=== PATIENT | female | born 1965 | race Caucasian/White ===

== ENCOUNTER → 2017-03-03 | Outpatient (CLI) | payer BC ==
[~2017-03-03] MED LIST: ACET-1311 PO; PRLSR20 PO
--- NOTE | 2017-03-03 12:09 | DIAGNOSTIC IMAGING REPORT ---
CHEST 2 VIEWS ROUTINE CLINICAL HISTORY: COUGH, LUNG DISEASE, LUNG NODULE, SINOBRONCHITIS COMPARISON STUDY: Chest radiograph September 09, [address] September 27, 2015. FINDINGS: Lung volumes are normal. No pneumothorax or pleural effusion is present. There is no consolidation to suggest pneumonia. Cardiomediastinal silhouette is normal. Pulmonary vascularity is normal. IMPRESSION: No acute cardiopulmonary findings. Electronically signed by: Stanley Dillon M.D. 03/03/2017 12:08 PM Dictated Date/Time: 03/03/2017 12:07 PM
== END | disposition home or self-care (01) ==
LOC: C.RAD1850 11:52
PROVIDERS: ATTEND Physician Assistant
DX: J32.9 Chronic sinusitis, unspecified (principal); J84.9 Interstitial pulmonary disease, unspecified; R05 Cough; R91.1 Solitary pulmonary nodule

== ENCOUNTER → 2017-03-25 | Outpatient (CLI) | payer BC ==
--- NOTE | 2017-03-25 11:30 | DIAGNOSTIC IMAGING REPORT ---
CHEST 2 VIEWS ROUTINE CLINICAL HISTORY: R05 [id number] COMPARISON STUDY: 03/03/2017 FINDINGS: The cardiac and mediastinal contours are normal. There is no evidence of focal pulmonary consolidation. There is no evidence of failure. No pleural effusions are visualized.[ A retrocardiac opacity likely represents a hiatal hernia. IMPRESSION: No active disease in the chest. Electronically signed by: Mark Sanchez M.D. 03/25/2017 11:28 AM Dictated Date/Time: 03/25/2017 11:27 AM
[2017-03-25 14:53] LABS: INFLUENZA A PCR Neg for Influ A (NEG); INFLUENZA B PCR Neg for Influ B (NEG)
== END | disposition home or self-care (01) ==
LOC: C.RAD1850 11:12
PROVIDERS: ATTEND Physician Assistant
DX: R05 Cough (principal)

== ENCOUNTER → 2018-02-10 | Outpatient (CLI) | payer BC ==
--- NOTE | 2018-02-10 11:35 | DIAGNOSTIC IMAGING REPORT ---
CHEST 2 VIEWS ROUTINE HISTORY: R05 [id number] Chest [id number] COMPARISON: Chest 03/25/2017. FINDINGS: The lungs are clear. Cardiac silhouette is normal in size. No pleural effusions. No pneumothorax. IMPRESSION: No acute process. Electronically signed by: Maco Lara M.D. 02/10/2018 11:33 AM Dictated Date/Time: 02/10/2018 11:06 AM
== END | disposition home or self-care (01) ==
LOC: C.RAD1850 10:58
PROVIDERS: ATTEND Physician Assistant
DX: R05 Cough (principal); R07.9 Chest pain, unspecified

== ENCOUNTER 2018-09-25 13:52 | Inpatient (IN) ==
[~2018-09-25 13:52] MED LIST changes: -ACET-1311 PO; +LACTATED RINGER'S 1,000 ML IV SCH; -PRLSR20 PO
[2018-09-25] MEDS ORDERED: MoRPHine SULFATE 10 MG/ML CARP/VIAL IV STA (14:14)
[2018-09-25] MEDS ORDERED: ONDANSETRON INJ 2 MG/ML 2 ML VIAL IV STA (14:14)
[2018-09-25] MEDS ORDERED: KETOROLAC TROMETHAMINE 15 MG/ML VIAL IV ONE (14:14)
[2018-09-25 14:51] LABS: Basophils # (auto) 0.01 K/uL (0-0.2); Basophils % (auto) 0.2 %; Eosinophils # (auto) 0.11 K/uL (0-0.5); Eosinophils % (auto) 1.7 %; Hematocrit (blood only) 43.8 % (37-47); Hemoglobin 14.6 g/dL (12.0-16.0); Immature Granulocytes # (auto) 0.04 K/uL (0.00-0.02); Immature Granulocytes % (auto) 0.6 %; Lymphocytes # (auto) 1.39 K/uL (1.2-3.4); Lymphocytes % (auto) 21.4 %; Mean Corpuscular Hgb Conc 33.3 g/dL (32-36); Mean Corpuscular Volume 90.9 fL (80-100); Mean Platelet Volume 10.7 fL (7.4-10.4); Monocytes # (auto) 0.36 K/uL (0.11-0.59); Monocytes % (auto) 5.5 %; Neutrophils % (auto) 70.6 %; Platelet Count 181 K/uL (130-400); RDW Standard Deviation 46.5 fL (36.4-46.3); Red Blood Count 4.82 M/uL (4.2-5.4); White Blood Count 6.51 K/uL (4.8-10.8)
[2018-09-25 14:57] LABS: Appearance Urine Cloudy (Clear); Bacteria Urine Automated Negative (Negative); Bilirubin Urine Negative (Negative); Blood Urine Negative (Negative); Color Urine Yellow; Epithelial Cell Urine Auto >30 /lpf (0-5); Glucose Urine UA Negative (Negative); Ketones Urine Negative (Negative); Leukocyte Esterase Urine Negative (Negative); Nitrite Urine Negative (Negative); Protein Urine 1+ (Negative); Specific Gravity Urine 1.039 (1.000-1.030); Urobilinogen Urine Negative (Negative); pH Urine 6.5 (4.5-7.5)
[2018-09-25 15:09] LABS: Albumin Level 3.8 gm/dl (3.4-5.0); BUN Creatinine Ratio 14.1 (10-20); Calcium 9.1 mg/dl (8.5-10.1); Creatinine Clr Calc Pharmacy 113.9 ml/min; Est GFR (African American) 98.9; Est GFR (Non-African American) 85.4; Potassium 3.8 mmol/L (3.5-5.1)
[2018-09-25 15:12] LABS: Albumin Globulin Ratio 0.9 (0.9-2); Bilirubin,Total 0.3 mg/dl (0.2-1); Globulin 4.2 gm/dl (2.5-4.0)
--- NOTE | 2018-09-25 15:39 | CT Scan Report ---
ABDOMEN AND PELVIS CT WITHOUT CONTRAST CT DOSE: 1689.26 mGy.cm HISTORY: Acute right-sided flank pain r flank pain TECHNIQUE: Multiaxial CT images of the abdomen and pelvis were performed without contrast. A dose lo wering technique was utilized adhering to the principles of ALARA. COMPARISON STUDY: Chest CT 09/27/2015 FINDINGS: Imaged lung bases appear generally clear. Costophrenic granuloma of the lateral basal segment left lo wer lobe. No pneumatosis or pneumoperitoneum. The imaged inferior cardiac chambers appear unremarkabl e. Prior cholecystectomy. Hepatic steatosis. No focal hepatic mass lesion, evidence of cirrhosis or intr ahepatic biliary ductal dilation. The spleen, pancreas and adrenal glands are unremarkable. Mild dila tion of the common bile duct is likely postsurgical. The kidneys and ureters are unremarkable. No renal calculi or obstructive uropathy. Urinary bladder, uterus and left adnexum appear unremarkable. There is a large ovoid circumscribed mass about the cent ral and right paracentral pelvis measuring 12.4 x 16.5 x 14.9 cm which is predominantly hyperdense. A dditionally, there is a fluid attenuating 4.0 cm structure about the left lateral aspect of this mass . Essentially within this mass there are several peripheral soft tissue attenuating and centrally hyp erdense structures measuring up to approximately 8.0 cm. Aorta and IVC appear unremarkable. There is no adenopathy. Small sliding-type hiatal hernia. No bowel obstruction or focal bowel wall thickening. Trace free pelvic fluid. Colonic reticulosis without acu te diverticulitis. Normal appendix. Soft tissues are unremarkable. Bones appear to be intact. No susp icious bone lesions. IMPRESSION: 1. Large ovoid hyperdense circumscribed mass about the central and right paracentral pelvis measures up to 16.5 cm and contains areas of central cystic and soft tissue density. A large hemorrhagic cyst, endometrioma or hemorrhagic epithelial neoplasm of the ovary are differential considerations. Correl ate clinically to exclude associated right ovarian torsion. Gynecologic consultation recommended. 2. Trace free pelvic fluid. 3. Prior cholecystectomy. 4. Hepatic steatosis. 5. Colonic diverticulosis without acute diverticulitis. 6. Small sliding-type hiatal hernia. Electronically signed by: Bert Horne M.D. 09/25/2018 3:38 PM
--- NOTE | 2018-09-25 16:08 | Ultrasound Report ---
US pelvic complete HISTORY: 53 years-old Female rlq abd pain w/ cyst acute mid pelvic pain with large pelvic mass . Pat ient is reportedly postmenopausal. COMPARISON: CT abdomen and pelvis of same day TECHNIQUE: Multiple real-time sonographic images of the deep pelvic structures were obtained transabd ominally assessing grayscale appearance, color and spectral flow. Transvaginal portion of the exam wa s refused by the patient. FINDINGS: Anteflexed uterus measures 9.3 x 4.7 x 6.1 cm. Endometrium measures 9 mm, abnormally thickened in a p ostmenopausal patient. No myometrial mass lesions identified. Left ovary is not diagnostically visual ized. No focal abnormality of the left adnexum. There is a large complex lesion about the right adnexum, 13.5 x 13.5 x 14.9 cm. This lesion is probab ly cystic with internal debris. Large cystic mass likely encases the right ovary with areas of mural soft tissue and cystic spaces noted. No internal flow Location of the right ovary. No significant free pelvic fluid. IMPRESSION: 1. Limited exam secondary to patient refusing the transvaginal component. 2. Large complex cystic mass of the right adnexum measures up to 14.9 cm encasing the right ovary. A normal right ovary is not seen. Findings are suspicious for associated right ovarian torsion. Differe ntial considerations for the large cystic mass would include hemorrhagic ovarian cyst, hemorrhagic pa raovarian cyst, or hemorrhagic epithelial neoplasm. Correlation with gynecologic surgical consultatio n recommended. 3. Nonvisualization of the left ovary. 4. 9 mm endometrium, abnormally thickened in a postmenopausal patient. Correlate clinically to exclud e endometrial hyperplasia or endometrial carcinoma. The above report was generated using voice recognition software. It may contain grammatical, syntax o r spelling errors. Electronically signed by: Bert Horne M.D. 09/25/2018 4:07 PM
[2018-09-25] MEDS ORDERED: MoRPHine SULFATE 4 MG/ML 1 ML CARP\\VIAL IV STA (16:20)
--- NOTE | 2018-09-25 17:21 | Emergency Department Note ---
Entered by Suhail Muir acting as a scribe for Vj Frances DO History of Present Illness General Chief complaint: Abdominal Pain Stated complaint: EXTREME PAIN ON RT SIDE Source: patient Limitations: no limitations History of Present Illness Provider complaint: RLQ Pain Onset (ago): hour(s) (10) Location: abdomen Severity: severe Pain Consistency: + constant Maximum Pain Intensity: 10 Associated symptoms: + nausea/vomiting Treatments prior to arrival: none The patient is a 53 year old female who presents to the Emergency Room with complaints of constant abdominal pain that began at 0400 this morning, about 10 hours ago. The pain is severe and is localized to the right lower abdominal quadrant. The patient states that she has a known ovarian cyst and follows with Dr. Adam. She also complains of persistent nausea, and 4 separate episodes of vomiting today. She has no history of kidney stones. The patient had a normal bowel movement this morning. No other exacerbating or remitting factors. Pain is a 10 out of 10 and constant currently. Home Medications Home Medications Medication Instructions Recorded Confirmed Type budesonide-formoterol [Symbicort] 2 puff INHALATION BID PRN 08/30/18 08/30/18 History cimetidine [Tagamet HB] 200 mg PO HS 08/30/18 08/30/18 History montelukast [Singulair] 10 mg PO HS 08/30/18 08/30/18 History omeprazole 20 mg PO QAM 08/30/18 08/30/18 History cabergoline 1 tab PO HS 09/06/18 09/06/18 History cabergoline 0.5 mg PO 09/25/18 History ergocalciferol (vitamin D2) 1 cap PO DIRECTED 09/25/18 09/25/18 History [Vitamin D2] ranitidine HCl 300 mg PO HS 09/25/18 09/25/18 History Allergies Allergy/AdvReac Type Severity Reaction Status Date / Time Penicillins Allergy Unknown HIVES,RASH Verified 09/25/18 14:22 sertraline Allergy Unknown RASH Verified 09/25/18 14:22 escitalopram AdvReac Unknown EXTREME Verified 09/25/18 14:22 SLEEPINESS Sulfa (Sulfonamide AdvReac Unknown VOMITING Verified 09/25/18 14:22 Antibiotics) NITROUS OXIDE AdvReac Unknown DIFFICULTY Uncoded 09/25/18 14:22 WAKING UP Past Med/Surg History Medical History Asthma Has not used Symbicort for several months, PRN GERD (gastroesophageal reflux disease) Morbid obesity Nausea and vomiting after administration of anesthetic agent ALSO SEVERE PANIC REACTION POST OP WAKING UP Pituitary tumor Microadenoma. Full workup being done by Dr. Sophy Basilio, endocrinology. Started on Cabergoline 09/05. SOB (shortness of breath) on exertion "OUT OF SHAPE" Sleep apnea new diagnosis, to be fitted with CPAP in October Surgical History History of bronchoscopy History of section X 2 History of cholecystectomy History of colonoscopy History of esophagogastroduodenoscopy (EGD) Family History Mother Family history of reaction to anesthesia NAUSEA AND VOMITING Social History Preferred Language: Scottish Feels Safe at Home: Yes Smoking Status: Former smoker Review of Systems See HPI for pertinent positives & negatives. and A total of 10 systems reviewed and were otherwise negative Physical Exam Vital Signs Vital Signs - 24 hr 09/25/18 14:01 09/25/18 15:05 09/25/18 15:10 Temperature 36.5 C Temperature Source Oral Sepsis Recent Fever Within 48 Hours No Sepsis New/Unexplained Change in Mental Status No Sepsis Action Taken by Nursing No Action Required Pulse Rate 64 Pulse Rate [Left Finger] 74 Pulse Rhythm Regular Pulse Rhythm [Left Finger] Pulse Strength Normal Pulse Strength [Left Finger] Respiratory Rate 20 16 Respiratory Effort / Characteristics Non-Labored Spontaneous Respiratory Depth Normal Respiratory Pattern Regular Blood Pressure 153/101 H Blood Pressure [Left Arm] 123/91 Blood Pressure Mean 118 Blood Pressure Mean [Left Arm] 101 Blood Pressure Position Sitting Pulse Oximetry 92 97 97 Oxygen Delivery Method Room Air Room Air Room Air 09/25/18 15:50 09/25/18 17:00 09/25/18 17:07 Temperature Temperature Source Sepsis Recent Fever Within 48 Hours Sepsis New/Unexplained Change in Mental Status Sepsis Action Taken by Nursing Pulse Rate Pulse Rate [Left Finger] 63 93 H 93 H Pulse Rhythm Pulse Rhythm [Left Finger] Regular Pulse Strength Pulse Strength [Left Finger] Normal Respiratory Rate 14 20 20 Respiratory Effort / Characteristics Non-Labored Spontaneous Respiratory Depth Normal Respiratory Pattern Regular Blood Pressure Blood Pressure [Left Arm] 117/80 147/93 H 147/93 H Blood Pressure Mean Blood Pressure Mean [Left Arm] 92 111 111 Blood Pressure Position Pulse Oximetry 98 98 98 Oxygen Delivery Method Room Air Room Air Room Air GENERAL: Rolling around in bed, holding RLQ, disheveled, non-toxic EYE EXAM: normal conjunctiva. OROPHARYNX: no exudate, no erythema, lips, buccal mucosa, and tongue normal and mucous membranes are moist NECK: supple, no nuchal rigidity, no adenopathy, non-tender LUNGS: Clear to auscultation. Normal chest wall mechanics HEART: no murmurs, S1 normal and S2 normal ABDOMEN: abdomen soft, tender to palpation to the RLQ, normo-active bowel, sounds, no masses, no rebound or guarding. BACK: Back is symmetrical on inspection and there is no deformity, no midline tenderness, no CVA tenderness. SKIN: no rashes and no bruising UPPER EXTREMITIES: upper extremities are grossly normal. LOWER EXTREMITIES: No pitting edema. NEURO EXAM: Normal sensorium, cranial nerves II-XII grossly intact, normal speech, no gross weakness of arms, no gross weakness of legs. Course ED COURSE: Vital signs were reviewed and showed hypertension. The patients medical record was reviewed The above diagnostic studies were performed and reviewed. ED treatments and interventions as stated above. 1411: The patient was evaluated in room B12B. A complete history and physical examination was performed. 1615: I discussed the case with Dr. Kia LUDWIG. He will come to the department to see the patient. 1627: Dr. Adam is at bedside. 1657: Dr. Adam will take the patient to the OR. Administered Medications Discontinued Medications Ketorolac Tromethamine (Toradol) 15 mg IV NOW ONE Stop: 09/25/18 14:15 Last Admin: 09/25/18 14:55 Dose: 15 mg Documented by: [id number] Morphine Sulfate (Morphine Sulfate) 8 mg IV NOW STA Stop: 09/25/18 14:15 Last Admin: 09/25/18 14:54 Dose: 8 mg Documented by: [id number] Morphine Sulfate (Morphine Sulfate) 4 mg IV NOW STA Stop: 09/25/18 16:21 Last Admin: 09/25/18 17:03 Dose: 4 mg Documented by: [id number] Ondansetron HCl (Zofran) 4 mg IV NOW STA Stop: 09/25/18 14:15 Last Admin: 09/25/18 14:55 Dose: 4 mg Documented by: [id number] Medical Decision Making Differential Diagnosis Differential diagnosis: Etiologies such as biliary colic, cholecystitis, hepatitis, perihepatitis, pancreatitis, cardiac disease, pancreatitis, gastritis, peptic ulcer disease, appendicitis, ovarian cyst, ovarian torsion, ectopic , pelvic inflammatory disease, cystitis, diverticulitis, mesenteric ischemia, inflammatory bowel disease, ileus, bowel obstruction, aortic pathology, shingles, as well as others were considered. Medical Records Attestation: I reviewed the patient's medical records. Home Medications Current Medication List: was personally reviewed by me Laboratory Data Attestation: I reviewed the patient's lab results. Result diagrams: 09/25/18 14:40 09/25/18 14:40 Lab Results 09/25/18 09/25/18 09/25/18 Range/Units 14:30 14:30 14:40 WBC 6.51 (4.8-10.8) K/uL RBC 4.82 (4.2-5.4) M/uL Hgb 14.6 (12.0-16.0) g/dL Hct 43.8 (37-47) % MCV 90.9 (80-100) fL MCH 30.3 (25-34) pg MCHC 33.3 (32-36) g/dL RDW Std Deviation 46.5 H (36.4-46.3) fL RDW Coeff of Jazzmine 14.0 (11.5-14.5) % Plt Count 181 (130-400) K/uL MPV 10.7 H (7.4-10.4) fL Immature Gran % (Auto) 0.6 % Neut % (Auto) 70.6 % Lymph % (Auto) 21.4 % Barren % (Auto) 5.5 % Eos % (Auto) 1.7 % Baso % (Auto) 0.2 % Immature Gran # (Auto) 0.04 H (0.00-0.02) K/uL Neut # (Auto) 4.60 (1.4-6.5) K/uL Lymph # (Auto) 1.39 (1.2-3.4) K/uL Barren # (Auto) 0.36 (0.11-0.59) K/uL Eos # (Auto) 0.11 (0-0.5) K/uL Baso # (Auto) 0.01 (0-0.2) K/uL Sodium (136-145) mmol/L Potassium (3.5-5.1) mmol/L Chloride (98-107) mmol/L Carbon Dioxide (21-32) mmol/L Anion Gap (3-11) BUN (7-18) mg/dl Creatinine (0.6-1.2) mg/dl Est Cr Clr Drug Dosing ml/min Est GFR ( Amer) Est GFR (Non-Af Amer) BUN/Creatinine Ratio (10-20) Glucose (70-99) mg/dl Calcium (8.5-10.1) mg/dl Total Bilirubin (0.2-1) mg/dl AST (15-37) U/L ALT (12-78) U/L Alkaline Phosphatase (45-117) U/L Total Protein (6.4-8.2) gm/dl Albumin (3.4-5.0) gm/dl Globulin (2.5-4.0) gm/dl Albumin/Globulin Ratio (0.9-2) Lipase (73-393) U/L Urine Color Yellow Urine Appearance Cloudy H (Clear) Urine pH 6.5 (4.5-7.5) Ur Specific [place] 1.039 H (1.000-1.030) Urine Protein 1+ H (Negative) Urine Glucose (UA) Negative (Negative) Urine Ketones Negative (Negative) Urine Blood Negative (Negative) Urine Nitrite Negative (Negative) Urine Bilirubin Negative (Negative) Urine Urobilinogen Negative (Negative) Ur Leukocyte Esterase Negative (Negative) Urine WBC (Auto) 1-5 (0-5) /hpf Urine RBC (Auto) 5-10 H (0-4) /hpf U Hyaline Cast (Auto) 1-5 (0-5) /lpf U Epithel Cells (Auto) >30 H (0-5) /lpf Urine Bacteria (Auto) Negative (Negative) POC Ur Test NEG (NEG) 09/25/18 Range/Units 14:40 WBC (4.8-10.8) K/uL RBC (4.2-5.4) M/uL Hgb (12.0-16.0) g/dL Hct (37-47) % MCV (80-100) fL MCH (25-34) pg MCHC (32-36) g/dL RDW Std Deviation (36.4-46.3) fL RDW Coeff of Jazzmine (11.5-14.5) % Plt Count (130-400) K/uL MPV (7.4-10.4) fL Immature Gran % (Auto) % Neut % (Auto) % Lymph % (Auto) % Barren % (Auto) % Eos % (Auto) % Baso % (Auto) % Immature Gran # (Auto) (0.00-0.02) K/uL Neut # (Auto) (1.4-6.5) K/uL Lymph # (Auto) (1.2-3.4) K/uL Barren # (Auto) (0.11-0.59) K/uL Eos # (Auto) (0-0.5) K/uL Baso # (Auto) (0-0.2) K/uL Sodium 140 (136-145) mmol/L Potassium 3.8 (3.5-5.1) mmol/L Chloride 105 (98-107) mmol/L Carbon Dioxide 23 (21-32) mmol/L Anion Gap 11.0 (3-11) BUN 11 (7-18) mg/dl Creatinine 0.80 (0.6-1.2) mg/dl Est Cr Clr Drug Dosing 113.9 ml/min Est GFR ( Amer) 98.9 Est GFR (Non-Af Amer) 85.4 BUN/Creatinine Ratio 14.1 (10-20) Glucose 128 H (70-99) mg/dl Calcium 9.1 (8.5-10.1) mg/dl Total Bilirubin 0.3 (0.2-1) mg/dl AST 16 (15-37) U/L ALT 30 (12-78) U/L Alkaline Phosphatase 68 (45-117) U/L Total Protein 8.0 (6.4-8.2) gm/dl Albumin 3.8 (3.4-5.0) gm/dl Globulin 4.2 H (2.5-4.0) gm/dl Albumin/Globulin Ratio 0.9 (0.9-2) Lipase 105 (73-393) U/L Urine Color Urine Appearance (Clear) Urine pH (4.5-7.5) Ur Specific [place] (1.000-1.030) Urine Protein (Negative) Urine Glucose (UA) (Negative) Urine Ketones (Negative) Urine Blood (Negative) Urine Nitrite (Negative) Urine Bilirubin (Negative) Urine Urobilinogen (Negative) Ur Leukocyte Esterase (Negative) Urine WBC (Auto) (0-5) /hpf Urine RBC (Auto) (0-4) /hpf U Hyaline Cast (Auto) (0-5) /lpf U Epithel Cells (Auto) (0-5) /lpf Urine Bacteria (Auto) (Negative) POC Ur Test (NEG) Imaging Data Attestation: I personally reviewed and interpreted this imaging study as follows: Radiologist's Impression: US pelvic complete HISTORY: 53 years-old Female rlq abd pain w/ cyst acute mid pelvic pain with la rge pelvic mass . Patient is reportedly postmenopausal. COMPARISON: CT abdomen and pelvis of same day TECHNIQUE: Multiple real-time sonographic images of the deep pelvic structures were obtained transabdominally assessing grayscale appearance, color and spectral flow. Transvaginal portion of the exam was refused by the patient. FINDINGS: Anteflexed uterus measures 9.3 x 4.7 x 6.1 cm. Endometrium measures 9 mm, abnormally thickened in a postmenopausal patient. No myometrial mass lesions identified. Left ovary is not diagnostically visualized. No focal abnormality of the left adnexum. There is a large complex lesion about the right adnexum, 13.5 x 13.5 x 14.9 cm. This lesion is probably cystic with internal debris. Large cystic mass likely encases the right ovary with areas of mural soft tissue and cystic spaces noted. No internal flow Location of the right ovary. No significant free pelvic fluid. IMPRESSION: 1. Limited exam secondary to patient refusing the transvaginal component. 2. Large complex cystic mass of the right adnexum measures up to 14.9 cm encasing the right ovary. A normal right ovary is not seen. Findings are suspicious for associated right ovarian torsion. Differential considerations for the large cystic mass would include hemorrhagic ovarian cyst, hemorrhagic paraovarian cyst, or hemorrhagic epithelial neoplasm. Correlation with gynecologic surgical consultation recommended. 3. Nonvisualization of the left ovary. 4. 9 mm endometrium, abnormally thickened in a postmenopausal patient. Correlate clinically to exclude endometrial hyperplasia or endometrial carcinoma. The above report was generated using voice recognition software. It may contain grammatical, syntax or spelling errors. Electronically signed by: Bert Horne M.D. 09/25/2018 4:07 PM ABDOMEN AND PELVIS CT WITHOUT CONTRAST CT DOSE: 1689.26 mGy.cm HISTORY: Acute right-sided flank pain r flank pain TECHNIQUE: Multiaxial CT images of the abdomen and pelvis were performed without contrast. A dose lowering technique was utilized adhering to the principles of ALARA. COMPARISON STUDY: Chest CT 09/27/2015 FINDINGS: Imaged lung bases appear generally clear. Costophrenic granuloma of the lateral basal segment left lower lobe. No pneumatosis or pneumoperitoneum. The imaged inferior cardiac chambers appear unremarkable. Prior cholecystectomy. Hepatic steatosis. No focal hepatic mass lesion, evidence of cirrhosis or intrahepatic biliary ductal dilation. The spleen, pancreas and adrenal glands are unremarkable. Mild dilation of the common bile duct is likely postsurgical. The kidneys and ureters are unremarkable. No renal calculi or obstructive uropathy. Urinary bladder, uterus and left adnexum appear unremarkable. There is a large ovoid circumscribed mass about the central and right paracentral pelvis measuring 12.4 x 16.5 x 14.9 cm which is predominantly hyperdense. Additionally, there is a fluid attenuating 4.0 cm structure about the left lateral aspect of this mass. Essentially within this mass there are several peripheral soft tissue attenuating and centrally hyperdense structures measuring up to approximately 8.0 cm. Aorta and IVC appear unremarkable. There is no adenopathy. Small sliding-type hiatal hernia. No bowel obstruction or focal bowel wall thickening. Trace free pelvic fluid. Colonic reticulosis without acute diverticulitis. Normal appendix. Soft tissues are unremarkable. Bones appear to be intact. No suspicious bone lesions. IMPRESSION: 1. Large ovoid hyperdense circumscribed mass about the central and right paracentral pelvis measures up to 16.5 cm and contains areas of central cystic and soft tissue density. A large hemorrhagic cyst, endometrioma or hemorrhagic epithelial neoplasm of the ovary are differential considerations. Correlate clinically to exclude associated right ovarian torsion. Gynecologic consultation recommended. 2. Trace free pelvic fluid. 3. Prior cholecystectomy. 4. Hepatic steatosis. 5. Colonic diverticulosis without acute diverticulitis. 6. Small sliding-type hiatal hernia. Electronically signed by: Bert Horne M.D. 09/25/2018 3:38 PM Blood Pressure Blood Pressure Findings: Elevated blood pressure Blood Pressure Disposition: elevated BP felt to be situational MDM Narrative Patient is a 53-year-old female who presents the ER for severe right lower quadrant abdominal pain associated with vomiting. This is been intermittent since this past June. She is currently scheduled September 30 for for surgery. She has the pain came on earlier this morning got significantly worse. Upon presentation she is found to be hypertensive and tachycardic. Do favor this secondary to the pain. Labs were obtained and showed no significant leukocytosis or anemia. BMP along with LFTs bilirubin and lipase was unremarkable. UA was negative. was negative. CT abdomen pelvis shows a large right pelvic mass. Ultrasound questions ovarian torsion with a 15 cm mass. Patient was given multiple doses of IV morphine. She is given IV Zofran. She is updated bedside. Discussed with [facility] who evaluated her at bedside. They will take her to the OR. Impression & Plan Ovarian torsion, Ovarian mass Discharge Plan Visit Data Chief Complaint: Abdominal Pain Stated Complaint: EXTREME PAIN ON RT SIDE ED Provider: Vj Frances Discharge Problem: Ovarian torsion, Ovarian mass Patient Disposition: Being Evaluated by Surgeon Forms Stand Alone Forms: Call Back Authorization, [facility] Prescriptions Prescriptions: No Action ranitidine HCl 300 mg tablet 300 mg PO HS RF: 0 cabergoline 0.5 mg tablet 0.5 mg PO RF: 0 ergocalciferol (vitamin D2) [Vitamin D2] 50,000 unit capsule 1 cap PO DIRECTED RF: 0 omeprazole 20 mg Tablet,Delayed Release (Dr/Ec) 20 mg PO QAM RF: 0 cimetidine [Tagamet HB] 200 mg Tablet 200 mg PO HS RF: 0 montelukast [Singulair] 10 mg Tablet 10 mg PO HS RF: 0 Symbicort 160-4.5 mcg/actuation Hfa Aerosol Inhaler 2 puff INHALATION BID PRN (Reason: Wheezing) RF: 0 cabergoline 0.5 mg Tablet 1 tab PO HS RF: 0 Referrals Referrals: Leora Solomon MD [Primary Care Provider] - The scribe's documentation has been prepared under my direction and personally reviewed by me in its entirety. I confirm that the note above accurately reflects all work, treatment, procedures, and medical decision making performed by me.
[2018-09-25] MEDS ORDERED: ONDANSETRON INJ 2 MG/ML 2 ML VIAL ONE (17:43)
--- NOTE | 2018-09-25 18:20 | History & Physical Bridge Note ---
Date of Service September 25, 2018 History & Physical Bridge Note I have examined the patient, reviewed the History & Physical and in the interval since the performance of the History & Physical I have noted the following changes of clinical significance: no changes noted H&P is dictated
[2018-09-25] MEDS ORDERED: ROCURONIUM BROMIDE 10 MG/ML 5 ML VIAL ONE (18:21)
[2018-09-25] MEDS ORDERED: SUCCINYLCHOLINE 100MG/5ML SYR ONE (18:21)
[2018-09-25] MEDS ORDERED: LIDOCAINE HCL 2% 2 ML VIAL/AMP(20MG/ML) INFIL ONE (18:21)
[2018-09-25] MEDS ORDERED: PROPOFOL IV EMULSION 10 MG/ML 20 ML VIAL IV ONE (18:21)
[2018-09-25] MEDS ORDERED: fentaNYL citrate 100 MCG/2 ML VIAL ONE (18:23)
[2018-09-25] MEDS ORDERED: MIDAZOLAM HCL 1 MG/ML 2ML VIAL ONE (18:24)
[2018-09-25] MEDS ORDERED: HYDROmorphone INJ 2 MG/ML SYR/VIAL ONE (19:16)
[2018-09-25] MEDS ORDERED: NEOSTIGMINE METHYLSULFATE 5 MG/5 ML SYR ONE (19:28)
[2018-09-25] MEDS ORDERED: GLYCOPYRROLATE 0.2 MG/ML VIAL ONE (19:28)
[2018-09-25] MEDS ORDERED: KETOROLAC 30 MG/ML VIAL ONE (19:28)
[2018-09-25] MEDS ORDERED: DEXAMETHASONE SOD INJ 4 MG/ML VIAL ONE (19:29)
[2018-09-25] MEDS ORDERED: cefOXitin 3,000 MG in DEXTROSE 5% 50 ML IV STA (19:39)
[2018-09-25] MEDS ORDERED: BUPIVACAINE 0.5 % 5 MG/1 ML MPF 30ML VIAL ONE (19:56)
--- NOTE | 2018-09-25 19:56 | History and Physical Report ---
DATE OF ADMISSION: 09/25/2018 HISTORY OF PRESENT ILLNESS: The patient is a 53-year-old patient who presented to the Emergency Room today with right lower abdominal pain since 4:00 a.m. The pain is sharp and stabbing and she has required several narcotics for pain relief. An ultrasound done showed that the patient had a pelvic mass which was already known. The patient was scheduled to undergo surgery this Wednesday. Ultrasound and CT done showed a 15-cm mass in the right adnexa suspicious for endometrioma or hemorrhagic cyst. Cannot rule out epithelial neoplasm. PAST MEDICAL HISTORY: 1. Morbid obesity. 2. Asthma. 3. Sleep apnea. PAST SURGICAL HISTORY: History of cholecystectomy and 2 sections. ALLERGIES: THE PATIENT IS ALLERGIC TO PENICILLIN AND PERCOCET. FAMILY HISTORY: Noncontributory. SOCIAL HISTORY: The patient denies tobacco, drug, or alcohol use. PHYSICAL EXAMINATION: GENERAL: Obese white female with moderate to severe discomfort. HEART: S1, S2, regular rhythm and rate. LUNGS: Clear to auscultation bilaterally. ABDOMEN: Generalized abdominal tenderness. There is worsening pain as I palpate the right adnexa. EXTREMITIES: No cyanosis, clubbing, or edema. ASSESSMENT AND PLAN: A 53-year-old with right adnexal mass, suspected ovarian torsion as per CT and ultrasound evaluation. Cannot rule out ovarian cyst versus ovarian neoplasm. The patient's pain is extremely severe. The patient was originally scheduled for surgery on 09/30/2018. Decision is to proceed with surgery today. Surgery will include laparotomy, pelvic washings, right salpingo-oophorectomy, and any other indicated procedure. We have discussed risks of infection, bleeding, damage to adjacent structures. The patient has agreed and sign consent. Will proceed to surgery.
[2018-09-25] MEDS ORDERED: BUPIVACAINE 0.5 % 5 MG/1 ML MPF 30ML VIAL INFIL SCH (20:15)
[2018-09-25] MEDS ORDERED: fentaNYL citrate 100 MCG/2 ML VIAL IV PRN (20:23)
[2018-09-25] MEDS ORDERED: PROMETHAZINE HCL 6.25 MG in SODIUM CHLORIDE 0.9% 50 ML IV PRN (20:23)
[2018-09-25] MEDS ORDERED: ePHEDrine sulfate 50 MG/ML AMP IV PRN (20:23)
[2018-09-25] MEDS ORDERED: ONDANSETRON INJ 2 MG/ML 2 ML VIAL IV PRN ×2 (20:23→20:31)
[2018-09-25] MEDS ORDERED: HYDROmorphone INJ 2 MG/ML SYR/VIAL IV PRN (20:23)
[2018-09-25] MEDS ORDERED: ATROPINE SULFATE 0.1 MG/ML 10ML SYR IV PRN (20:23)
[2018-09-25] MEDS ORDERED: BISACODYL 10 MG SUPP PR PRN (20:31)
[2018-09-25] MEDS ORDERED: SENNA 8.6 MG TAB PO PRN (20:31)
[2018-09-25] MEDS ORDERED: PROMETHAZINE HCL 25 MG in SODIUM CHLORIDE 0.9% 50 ML IV PRN (20:31)
[2018-09-25] MEDS ORDERED: MAGNESIUM HYDROXIDE SUSP 30 ML UDC PO PRN (20:31)
[2018-09-25] MEDS ORDERED: MEPERIDINE HCL 50 MG/ML CARP IV PRN (20:31)
--- NOTE | 2018-09-25 21:00 | Anesthesiology Progress Note ---
Date of Service September 25, 2018 Anesthesia Post Procedure Vital Signs Vital Signs: Temp Pulse Pulse Pulse Resp BP BP 09/25/18 20:45 58 L 14 101/65 09/25/18 20:35 55 L 14 110/68 09/25/18 20:25 55 L 12 111/77 09/25/18 20:19 36.7 C 57 L 13 107/77 09/25/18 17:47 82 20 123/85 09/25/18 17:07 93 H 20 147/93 H 09/25/18 17:00 93 H 20 147/93 H 09/25/18 15:50 63 14 117/80 09/25/18 15:10 09/25/18 15:05 36.5 C 74 16 123/91 09/25/18 14:01 64 20 153/101 H Pulse Ox 09/25/18 20:45 94 09/25/18 20:35 100 09/25/18 20:25 100 09/25/18 20:19 100 09/25/18 17:47 95 09/25/18 17:07 98 09/25/18 17:00 98 09/25/18 15:50 98 09/25/18 15:10 97 09/25/18 15:05 97 09/25/18 14:01 92 Pain Intensity Right Abdomen: Pain Intensity: 2 Notes Mental Status: alert / awake / arousable Patient Amnestic to Procedure: Yes Nausea / Vomiting: adequately controlled Pain: adequately controlled Airway Patency, RR, SpO2: stable & adequate BP & HR: stable & adequate Hydration State: stable & adequate Anesthetic Complications: no major complications apparent
--- NOTE | 2018-09-25 21:22 | Operative Report ---
DATE OF OPERATION: 09/25/2018 INDICATION FOR PROCEDURE: This is a 53-year-old who presented with acute abdominal and pelvic pain. Ultrasound showed possible right ovarian torsion. PREOPERATIVE DIAGNOSES: 1. Acute abdominal pain. 2. Right ovarian torsion. 3. Right adnexal mass. POSTOPERATIVE DIAGNOSES: Same. PROCEDURES: 1. Laparotomy. 2. Pelvic washings. 3. Right salpingo-oophorectomy. SURGEON: Siddhartha Adam MD DIRECT MARKETING ANALYST: Bob Little MD ESTIMATED BLOOD LOSS: 50 mL. IV FLUIDS: 1200 mL. URINE OUTPUT: 50 mL clear urine at end of procedure. FINDINGS: A 16-cm right adnexal mass. The uterus and left ovary appeared grossly normal. Rest of the pelvic exam is unremarkable. COMPLICATIONS: None. DRAINS: Mc catheter. ANESTHESIA: General. DESCRIPTION OF PROCEDURE: The patient was taken to the operating room where she was prepped and draped in normal sterile fashion. A timeout was called. A midline incision was made and extended to the umbilicus. Incision was carried down to the fascia. Fascia was incised in the midline and extended superiorly and inferiorly using Cabrera scissors. Peritoneum was identified and entered sharply. Once inside the abdomen, the 16 x 10 cm mass could be identified, was carefully exteriorized. Terry clamps were used to grab the infundibulopelvic x2 and cut. It was double clamped. The mass was handed off the field intact. Copious amount of irrigation was used to irrigate the abdomen. The rest of the abdominal exam is as dictated above. The fascia was closed in a running fashion using PDS. SubQ was closed in 2 layers using plain suture. Mattress sutures of silk were used on the skin and skin was also closed with destiny. All instruments were removed from the abdomen and accounted for x2. The patient is sent to recovery in stable condition. I attest to the content of the Intraoperative Record and any orders documented therein. Any exception s are noted below.
[2018-09-25] MEDS ORDERED: ALBUTEROL HFA 8 GM INHALER INH SCH (21:30)
[2018-09-25] MEDS: LACTATED RINGER'S 1,000 ML IV SCH (21:30)
[2018-09-25] MEDS: KETOROLAC 30 MG/ML VIAL IV PRN (21:50)
--- NOTE | 2018-09-25 23:27 | Post Operative Brief Note ---
Immediate Post Op Note v1 Date of Surgery September 25, 2018 Pre & Post Diagnosis Operation Date: 09/25/18 17:15 Pre-Op Diagnosis: Right ovarian torsion, right ovarian mass Post-Op Diagnosis: Right ovarian torsion, right ovarian mass Procedure Operation Date: 09/25/18 17:15 Actual Procedures p Exploratory laparotomy, right salpingo-oophorectomy, pelvic washing(Right) - Siddhartha Adam MD Surgeon Siddhartha Adam MD Strategic Marketing Associate dr nicole Estimated Blood Loss 50 Findings Consistent with Post-Op Diagnosis Drains Mc Catheter
[2018-09-26] MEDS: KETOROLAC 30 MG/ML VIAL IV PRN ×2 (04:03→15:38)
[2018-09-26] MEDS ORDERED: cefOXitin 2,000 MG in DEXTROSE 5% 50 ML IV SCH (06:00)
[2018-09-26 07:29] LABS: Hematocrit (blood only) 35.9 % (37-47); Immature Granulocytes # (auto) 0.04 K/uL (0.00-0.02); Immature Granulocytes % (auto) 0.4 %; Lymphocytes # (auto) 0.82 K/uL (1.2-3.4); Lymphocytes % (auto) 8.9 %; Mean Corpuscular Hgb Conc 33.4 g/dL (32-36); Mean Corpuscular Volume 92.1 fL (80-100); Mean Platelet Volume 10.3 fL (7.4-10.4); Monocytes # (auto) 0.48 K/uL (0.11-0.59); Monocytes % (auto) 5.2 %; Neutrophils # (auto) 7.86 K/uL (1.4-6.5); Neutrophils % (auto) 85.5 %; Platelet Count 179 K/uL (130-400); RDW Coefficient of Variation 14.3 % (11.5-14.5)
--- NOTE | 2018-09-26 07:41 | Anesthesiology Progress Note ---
Date of Service September 26, 2018 Anesthesia Post Procedure Vital Signs Vital Signs: Temp Pulse Pulse Pulse Pulse Resp BP 09/26/18 04:05 36.4 C L 80 16 09/26/18 00:05 36.7 C 66 16 09/25/18 23:27 36.4 C L 61 16 09/25/18 22:15 36.6 C 63 16 09/25/18 21:45 36.4 C L 52 L 18 09/25/18 21:15 36.6 C 56 L 16 09/25/18 21:05 55 L 17 09/25/18 20:55 36.3 C L 55 L 15 09/25/18 20:45 58 L 14 09/25/18 20:35 55 L 14 09/25/18 20:25 55 L 12 09/25/18 20:19 36.7 C 57 L 13 09/25/18 17:47 82 20 123/85 09/25/18 17:07 93 H 20 09/25/18 17:00 93 H 20 09/25/18 15:50 63 14 09/25/18 15:10 09/25/18 15:05 36.5 C 74 16 09/25/18 14:01 64 20 153/101 H BP Pulse Ox 09/26/18 04:05 91/60 L 94 09/26/18 00:05 93/65 L 98 09/25/18 23:27 92/62 L 88 L 09/25/18 22:15 96/64 L 94 09/25/18 21:45 138/71 92 09/25/18 21:15 102/71 98 09/25/18 21:05 106/72 96 09/25/18 20:55 101/62 97 09/25/18 20:45 101/65 94 09/25/18 20:35 110/68 100 09/25/18 20:25 111/77 100 09/25/18 20:19 107/77 100 09/25/18 17:47 95 09/25/18 17:07 147/93 H 98 09/25/18 17:00 147/93 H 98 09/25/18 15:50 117/80 98 09/25/18 15:10 97 09/25/18 15:05 123/91 97 09/25/18 14:01 92 Pain Intensity Right Abdomen: Pain Intensity: 5 Notes Mental Status: alert / awake / arousable Patient Amnestic to Procedure: Yes Nausea / Vomiting: adequately controlled Pain: adequately controlled Airway Patency, RR, SpO2: stable & adequate BP & HR: stable & adequate Hydration State: stable & adequate Anesthetic Complications: no major complications apparent
--- NOTE | 2018-09-26 07:48 | Obstetrical Progress Note ---
Date of Service September 26, 2018 Assessment & Plan (1) Ovarian torsion: S/P Ovarian torsion Day #1 Pt doing well Tolerating PO food and Meds continue day #1 care Subjective Ambulation: ambulating normally Voiding: no voiding problems Passing Gas:: Yes Diet Tolerance:: regular diet Lochia:: Small Feeding Type:: breast feeding Review of Systems All systems reviewed & are unremarkable except as noted in HPI & below Physical Exam Vital Signs (Past 24 Hours) Last Vital Signs Temp 36.4 C L 09/26/18 04:05 Pulse 80 09/26/18 04:05 Resp 16 09/26/18 04:05 BP 91/60 L 09/26/18 04:05 Pulse Ox 94 09/26/18 04:05 Constitutional WD/WN, vitals as above well developed and well nourished Eyes PERRL, conjunctivae normal, anicteric sclerae ENMT external ear and nose normal, oropharynx normal Neck trachea midline, no thyromegaly Respiratory normal respiratory effort, lungs clear to auscultation Auscultation: no crackles, no rales and no wheezes Cardiovascular RRR, no murmur, no edema Chest (Breasts) normal inspection/palpation of breasts Gastrointestinal (Abdomen) normal bowel sounds, soft, nontender, no hepatosplenomegaly Uterus is below umbilicus Musculoskeletal no cyanosis or clubbing, extremities motor strength 5/5 Skin no rashes, warm and dry + incision (Incision clean,dry and intact) Neurologic patellar DTR's 2+ bilat, sensation intact Psychiatric A+Ox3, euthymic affect Genitourinary no vaginal lesions, no adnexal mass normal external appearance Lymphatic no cervical or axillary lymphadenopathy
[2018-09-26 08:04] LABS: BUN Creatinine Ratio 17.7 (10-20); Calcium 8.1 mg/dl (8.5-10.1); Creatinine Clr Calc Pharmacy 126.6 ml/min; Est GFR (African American) 112.4; Potassium 4.2 mmol/L (3.5-5.1)
[2018-09-26] MEDS ORDERED: NON-FORMULARY PATIENT'S OWN MED SCH (08:45)
[2018-09-26] MEDS: LACTATED RINGER'S 1,000 ML IV SCH (08:49)
[2018-09-26] MEDS: PANTOprazole 40 MG TAB PO SCH (08:49)
[2018-09-26] MEDS ORDERED: ERGOCALCIFEROL 50,000 UNITS CAP PO SCH ×2 (09:30→17:00)
[2018-09-26] MEDS: ACETAMINOPHEN W/CODEINE #3 1 TAB PO PRN ×4 (09:41→18:22)
--- NOTE | 2018-09-26 10:35 | Surgery Progress Note ---
Date of Service September 26, 2018 Subjective Doing well passing gas no pain or bleeding denies headaches Physical Exam Vital Signs (Past 24 Hours): Last Vital Signs Temp 36.5 C 09/26/18 07:15 Pulse 89 09/26/18 07:15 Resp 18 09/26/18 07:15 BP 90/60 L 09/26/18 07:15 Pulse Ox 95 09/26/18 07:20 Constitutional: WD/WN, vitals as above comfortable abdomen soft non- tender incision clean dry and intact no edema neg Delphine's adequate urine output labs and vitals are normal will increase diet POD#1 Preeclampsia with severe features Results & Data Laboratory Results 09/25/18 09/25/18 09/25/18 14:30 14:30 14:40 WBC 6.51 RBC 4.82 Hgb 14.6 Hct 43.8 MCV 90.9 MCH 30.3 MCHC 33.3 RDW Std Deviation 46.5 H RDW Coeff of Jazz[place] 14.0 Plt Count 181 MPV 10.7 H Immature Gran % (Auto) 0.6 Neut % (Auto) 70.6 Lymph % (Auto) 21.4 [place] % (Auto) 5.5 Eos % (Auto) 1.7 Baso % (Auto) 0.2 Immature Gran # (Auto) 0.04 H Neut # (Auto) 4.60 Lymph # (Auto) 1.39 [place] # (Auto) 0.36 Eos # (Auto) 0.11 Baso # (Auto) 0.01 Sodium Potassium Chloride Carbon Dioxide Anion Gap BUN Creatinine Est Cr Clr Drug Dosing Est GFR ( Amer) Est GFR (Non-Af Amer) BUN/Creatinine Ratio Glucose Calcium Total Bilirubin AST ALT Alkaline Phosphatase Total Protein Albumin Globulin Albumin/Globulin Ratio Lipase Urine Color Yellow Urine Appearance Cloudy H Urine pH 6.5 Ur Specific [place] 1.039 H Urine Protein 1+ H Urine Glucose (UA) Negative Urine Ketones Negative Urine Blood Negative Urine Nitrite Negative Urine Bilirubin Negative Urine Urobilinogen Negative Ur Leukocyte Esterase Negative Urine WBC (Auto) 1-5 Urine RBC (Auto) 5-10 H U Hyaline Cast (Auto) 1-5 U Epithel Cells (Auto) >30 H Urine Bacteria (Auto) Negative POC Ur Test NEG 09/25/18 09/26/18 09/26/18 14:40 06:34 06:34 WBC 9.20 RBC 3.90 L Hgb 12.0 Hct 35.9 L MCV 92.1 MCH 30.8 MCHC 33.4 RDW Std Deviation 48.0 H RDW Coeff of [place] 14.3 Plt Count 179 MPV 10.3 Immature Gran % (Auto) 0.4 Neut % (Auto) 85.5 Lymph % (Auto) 8.9 [place] % (Auto) 5.2 Eos % (Auto) 0.0 Baso % (Auto) 0.0 Immature Gran # (Auto) 0.04 H Neut # (Auto) 7.86 H Lymph # (Auto) 0.82 L [place] # (Auto) 0.48 Eos # (Auto) 0.00 Baso # (Auto) 0.00 Sodium 140 138 Potassium 3.8 4.2 Chloride 105 107 Carbon Dioxide 23 25 Anion Gap 11.0 6.0 BUN 11 13 Creatinine 0.80 0.72 Est Cr Clr Drug Dosing 113.9 126.6 Est GFR ( Amer) 98.9 112.4 Est GFR (Non-Af Amer) 85.4 97.0 BUN/Creatinine Ratio 14.1 17.7 Glucose 128 H 125 H Calcium 9.1 8.1 L Total Bilirubin 0.3 AST 16 ALT 30 Alkaline Phosphatase 68 Total Protein 8.0 Albumin 3.8 Globulin 4.2 H Albumin/Globulin Ratio 0.9 Lipase 105 Urine Color Urine Appearance Urine pH Ur Specific [place] Urine Protein Urine Glucose (UA) Urine Ketones Urine Blood Urine Nitrite Urine Bilirubin Urine Urobilinogen Ur Leukocyte Esterase Urine WBC (Auto) Urine RBC (Auto) U Hyaline Cast (Auto) U Epithel Cells (Auto) Urine Bacteria (Auto) POC Ur Test
[2018-09-26] MEDS ORDERED: SERTRALINE HCL 50 MG TABLET PO SCH (11:15)
[2018-09-26] MEDS ORDERED: Nursing to Pharmacy Communication ONE (12:34)
[2018-09-26] MEDS ORDERED: ACETAMINOPHEN W/CODEINE #3 1 TAB PO PRN (16:35)
[2018-09-26] MEDS: IBUPROFEN 600 MG TAB PO PRN (20:50)
[2018-09-26] MEDS ORDERED: MONTELUKAST SODIUM 10 MG TABLET PO SCH (21:00)
[2018-09-27] MEDS: ACETAMINOPHEN W/CODEINE #3 1 TAB PO PRN ×4 (01:45→19:27)
[2018-09-27] MEDS: IBUPROFEN 600 MG TAB PO PRN ×3 (06:04→18:26)
[2018-09-27 06:35] LABS: Basophils # (auto) 0.01 K/uL (0-0.2); Basophils % (auto) 0.1 %; Eosinophils # (auto) 0.15 K/uL (0-0.5); Eosinophils % (auto) 2.1 %; Hematocrit (blood only) 33.7 % (37-47); Hemoglobin 10.8 g/dL (12.0-16.0); Immature Granulocytes # (auto) 0.04 K/uL (0.00-0.02); Immature Granulocytes % (auto) 0.6 %; Lymphocytes # (auto) 2.53 K/uL (1.2-3.4); Lymphocytes % (auto) 35.7 %; Mean Corpuscular Volume 93.6 fL (80-100); Mean Platelet Volume 10.1 fL (7.4-10.4); Monocytes % (auto) 7.1 %; Neutrophils # (auto) 3.86 K/uL (1.4-6.5); Neutrophils % (auto) 54.4 %; Platelet Count 156 K/uL (130-400); RDW Coefficient of Variation 14.5 % (11.5-14.5); RDW Standard Deviation 49.4 fL (36.4-46.3); White Blood Count 7.09 K/uL (4.8-10.8)
[2018-09-27 07:07] LABS: BUN Creatinine Ratio 15.2 (10-20); Calcium 8.2 mg/dl (8.5-10.1); Est GFR (African American) 77.4; Est GFR (Non-African American) 66.8; Potassium 3.5 mmol/L (3.5-5.1)
[2018-09-27] MEDS: PANTOprazole 40 MG TAB PO SCH (08:04)
[2018-09-27] MEDS ORDERED: LACTATED RINGER'S 1,000 ML IV ONE (10:41)
[2018-09-27] MEDS ORDERED: LACTATED RINGER'S 1,000 ML IV SCH (10:45)
--- NOTE | 2018-09-27 10:46 | Obstetrical Progress Note ---
Date of Service September 27, 2018 Assessment & Plan (1) Ovarian torsion: POD #2 pt reports " Not feeling myself today" unable to sya exactly what problem she is having No SOB, chills or fever tolerated PO food and meds Reports inciison pain is worse today than yesterday given pain meds Reviewed labs Plan IVF Monitor vital pt wants to go home but have convinced her to stay since she is not feeling so well Subjective Review of Systems All systems reviewed & are unremarkable except as noted in HPI & below Physical Exam Vital Signs (Past 24 Hours) Last Vital Signs Temp 36.4 C L 09/27/18 07:50 Pulse 63 09/27/18 07:50 Resp 18 09/27/18 07:50 BP 92/59 L 09/27/18 07:50 Pulse Ox 94 09/27/18 07:50 Constitutional WD/WN, vitals as above Eyes PERRL, conjunctivae normal, anicteric sclerae ENMT external ear and nose normal, oropharynx normal Neck trachea midline, no thyromegaly Respiratory normal respiratory effort, lungs clear to auscultation Cardiovascular RRR, no murmur, no edema Chest (Breasts) normal inspection/palpation of breasts Gastrointestinal (Abdomen) normal bowel sounds, soft, nontender, no hepatosplenomegaly Musculoskeletal no cyanosis or clubbing, extremities motor strength 5/5 Skin + incision (Incision clean,dry and intact) Neurologic patellar DTR's 2+ bilat, sensation intact Psychiatric A+Ox3, euthymic affect Genitourinary no vaginal lesions, no adnexal mass Lymphatic no cervical or axillary lymphadenopathy
--- NOTE | 2018-09-27 18:57 | Progress Note ---
Date of Service September 27, 2018 pt feeling much better and now wants to go home Physical Exam Vital Signs (Past 24 Hours): Last Vital Signs Temp 36.5 C 09/27/18 15:15 Pulse 69 09/27/18 15:15 Resp 16 09/27/18 15:15 BP 105/64 09/27/18 15:15 Pulse Ox 97 09/27/18 15:15
[2018-09-27] MEDS ORDERED: CABERGOLINE 0.5 MG PO SCH (21:00)
--- NOTE | 2018-09-27 21:45 | Discharge Summary ---
CHIEF COMPLAINT: Right-sided abdominal pain. HISTORY OF PRESENT ILLNESS: This is a 53-year-old who presented to the Emergency Room on 09/25/2018 with complaints of worsening right abdominal pain. Pain has been present since 4:00 a.m. in the morning. She described pain as sharp and stabbing. She received oral narcotics and did not get any relief. Ultrasound and CT done showed a 15-cm right adnexal mass with suspected torsion. The patient underwent laparotomy with right salpingo-oophorectomy and pelvic washings. Result of specimen is still pending pathology. Surgery was unremarkable. She did well. She tolerated postop day 1 and today postop day 2, she is doing well. Has no shortness of breath, no chills, no fever, able to ambulate. Pain is controlled with pain medication. PAST MEDICAL HISTORY: History of morbid obesity, asthma, and sleep apnea. PAST SURGICAL HISTORY: History of cholecystectomy and 3 sections. ALLERGIES: PATIENT IS ALLERGIC TO PENICILLIN AND PERCOCET. FAMILY HISTORY: Noncontributory. SOCIAL HISTORY: Denies tobacco, drug, or alcohol use. REVIEW OF SYSTEMS: Negative except as dictated on the HPI. PHYSICAL EXAMINATION: GENERAL: Well-developed, well-nourished, white female in no acute distress. VITAL SIGNS: Today, temperature is 36.5, respirations are 16, pulse is 69, blood pressure is 104/64. HEART: S1, S2, regular rhythm and rate. LUNGS: Clear to auscultation bilaterally. ABDOMEN: Positive bowel sounds, nontender, nondistended. Dressing is clean, dry and intact. EXTREMITIES: No cyanosis, clubbing, or edema. LABORATORY DATA: Hemoglobin is 10.8, hematocrit is 36.7, platelets are 156. CONDITION ON DISCHARGE: Stable. OPERATIONS: Laparotomy, right salpingo-oophorectomy and pelvic washings. DISCHARGE DIAGNOSIS: Postop after right salpingo-oophorectomy. PLAN ON DISCHARGE: Patient is discharged home with instructions regarding activity, diet, and followup appointment.
== END 2018-09-27 19:45 | disposition home or self-care (01) | DRG 742 ==
LOC: ED 13:52 → SURCTR 17:50 → 4N 20:26